=== PATIENT | female | born 1945 | race Caucasian/White ===

== ENCOUNTER 2017-03-29 14:36 | Outpatient (CLI) | payer MEDICARE | END 2017-03-29 14:37 | disposition home or self-care (01) | LOC: LAB.WCP 14:36 | PROVIDERS: ATTEND Family Medicine | DX: N39.0 Urinary tract infection, site not specified (principal) | CPT/HCPCS: 87077; 87086 ==

== ENCOUNTER 2017-05-01 15:33 | Outpatient (CLI) | payer MEDICARE | END 2017-05-01 15:34 | LOC: LAB.R 15:33 | PROVIDERS: ATTEND Physician Assistant Medical | DX: N39.0 Urinary tract infection, site not specified (principal) | CPT/HCPCS: 87086 ==

== ENCOUNTER 2017-10-24 15:00 | Outpatient (CLI) | payer MEDICARE | END 2017-10-24 15:01 | disposition home or self-care (01) | LOC: LAB.WCP 15:00 | PROVIDERS: ATTEND Family Medicine | DX: N39.0 Urinary tract infection, site not specified (principal) | CPT/HCPCS: 87077; 87086 ==

== ENCOUNTER 2018-03-08 10:30 | Outpatient (CLI) | payer MEDICARE | END 2018-03-08 23:59 | disposition home or self-care (01) | LOC: LAB.WCP 10:30 | PROVIDERS: ATTEND Physician Assistant Medical | DX: N39.0 Urinary tract infection, site not specified (principal) | CPT/HCPCS: 87086; 87181 ==

== ENCOUNTER 2019-03-10 12:36 | Outpatient (CLI) | payer MEDICARE ==
[2019-03-10 19:04] LABS: CALCIUM 9.4 mg/dL (8.5-10.3); CREATININE 0.8 mg/dL (0.4-1.0)
== END 2019-03-10 12:37 | disposition home or self-care (01) ==
LOC: LAB.WCP 12:36
PROVIDERS: ATTEND Physician Assistant Medical
DX: I10 Essential (primary) hypertension (principal)
CPT/HCPCS: 36415; 80048

== ENCOUNTER 2019-03-11 15:39 | Outpatient (CLI) | payer MEDICARE ==
--- NOTE | 2019-03-12 10:13 | XRAY Report ---
Reason: HIP PAIN,RIGHT Procedure Date: 03/11/2019 Accession Number: [id number] / [id number] Procedure: WCP - Hip w/Pelvis 2-3V RT CPT Code: FULL RESULT: EXAM: RIGHT HIP RADIOGRAPHY EXAM DATE: 03/11/2019 03:55 PM. CLINICAL HISTORY: Hip pain, right. Pain is chronic, no known injury. COMPARISON: None. TECHNIQUE: 2 views. FINDINGS: Bones: Normal. No fractures or bone lesion. Joints: There is bilateral narrowing of the femoral acetabular joints right greater than left, moderate. There is associated osteophytosis. No subluxation. Soft Tissues: Normal. No soft tissue swelling. IMPRESSION: Degenerative hip disease. RADIA
== END 2019-03-11 15:40 | disposition home or self-care (01) ==
LOC: DI.WCP 15:39
PROVIDERS: ATTEND Physician Assistant Medical
DX: M16.11 Unilateral primary osteoarthritis, right hip (principal)

== ENCOUNTER 2019-05-19 08:00 | Outpatient (CLI) | payer MEDICARE ==
[2019-05-19 18:49] LABS: % IRON SATURATION 8 % (20-50); IRON 31 ug/dL (28-170); TOTAL IRON BINDING CAPACITY 403 ug/dL (250-450); TRANSFERRIN 288 mg/dL (192-382)
[2019-05-19 19:03] LABS: FOLATE 10.12 ng/mL (5.90 - >24.8)
== END 2019-05-19 23:59 | disposition home or self-care (01) ==
LOC: LAB.WCP 08:00
PROVIDERS: ATTEND Physician Assistant Medical
DX: D64.9 Anemia, unspecified (principal)
CPT/HCPCS: 36415; 82607; 82728; 82746; 83540; 84443; 84466

== ENCOUNTER 2019-07-02 08:00 | Outpatient (CLI) | payer MEDICARE ==
[2019-07-02 18:53] LABS: BASOPHILS # (AUTO) 0.1 10^3/uL (0.0-0.1); BASOPHILS % (AUTO) 0.9 %; EOSINOPHILS # (AUTO) 0.3 10^3/uL (0.0-0.7); EOSINOPHILS % (AUTO) 4.5 %; HGB - HEMOGLOBIN 8.5 g/dL (12.0-16.0); LYMPHOCYTES # (AUTO) 1.4 10^3/uL (1.5-3.5); LYMPHOCYTES % (AUTO) 24.4 %; MEAN CORPUSCULAR HEMOGLOBIN 27.1 pg (27.0-31.0); MEAN CORPUSCULAR HGB CONC 29.3 g/dL (32.0-36.0); MEAN CORPUSCULAR VOLUME 92.4 fL (81.0-99.0); MEAN PLATELET VOLUME 9.1 fL (7.9-10.8); MONOCYTES # (AUTO) 0.6 10^3/uL (0.0-1.0); MONOCYTES % (AUTO) 10.3 %; NEUTROPHILS # (AUTO) 3.3 10^3/uL (1.5-6.6); NEUTROPHILS % (AUTO) 59.4 %; PLT - PLATELET COUNT 255 10^3/uL (130-450); RED BLOOD COUNT 3.14 10^6/uL (4.20-5.40); RED CELL DISTRIBUTION WIDTH 13.6 % (12.0-15.0); WHITE BLOOD COUNT 5.5 x10^3/uL (4.8-10.8)
== END 2019-07-02 23:59 | disposition home or self-care (01) ==
LOC: LAB.WCP 08:00
PROVIDERS: ATTEND Physician Assistant Medical
DX: D64.9 Anemia, unspecified (principal)
CPT/HCPCS: 36415; 82728; 85025

== ENCOUNTER 2020-05-06 12:22 | Outpatient (CLI) | payer MEDICARE ==
--- NOTE | 2020-05-07 08:54 | XRAY Report ---
PROCEDURE: Chest 2 View X-Ray INDICATIONS: Dyspnea TECHNIQUE: 2 view(s) of the chest. COMPARISON: None. FINDINGS: Surgical changes and devices: None. Lungs and pleura: No pleural effusions or pneumothorax. Lungs are clear. Mediastinum: Mediastinal contours are normal. Heart size is normal. Bones and chest wall: No suspicious bony abnormalities. Soft tissues appear unremarkable. IMPRESSION: Tiny left pleural effusion with left airspace opacity, potentially atelectasis or pneumon ia. Findings could also be related to cardiogenic pulmonary edema in the appropriate clinical context . Follow-up to both clinical and radiographic resolution is recommended. Reviewed by: Cristhian Li MD on 05/06/2020 2:50 PM PDT Approved by: Cristhian Li MD on 05/06/2020 2:50 PM PDT Station ID: [id number]
== END 2020-05-06 23:59 | disposition home or self-care (01) ==
LOC: DI.WCP 12:22
PROVIDERS: ATTEND Family Medicine
DX: J90 Pleural effusion, not elsewhere classified (principal); R91.8 Other nonspecific abnormal finding of lung field
CPT/HCPCS: 71046

== ENCOUNTER 2020-05-06 13:31 | Outpatient (CLI) | payer MEDICARE ==
[2020-05-06 18:31] LABS: BASOPHILS # (AUTO) 0.1 10^3/uL (0.0-0.1); BASOPHILS % (AUTO) 0.8 %; EOSINOPHILS # (AUTO) 0.5 10^3/uL (0.0-0.7); EOSINOPHILS % (AUTO) 6.3 %; HGB - HEMOGLOBIN 7.2 g/dL (12.0-16.0); LYMPHOCYTES # (AUTO) 1.2 10^3/uL (1.5-3.5); LYMPHOCYTES % (AUTO) 16.4 %; MEAN CORPUSCULAR HEMOGLOBIN 21.9 pg (27.0-31.0); MEAN CORPUSCULAR HGB CONC 27.8 g/dL (32.0-36.0); MEAN CORPUSCULAR VOLUME 78.7 fL (81.0-99.0); MEAN PLATELET VOLUME 9.5 fL (7.9-10.8); MONOCYTES # (AUTO) 0.8 10^3/uL (0.0-1.0); MONOCYTES % (AUTO) 10.5 %; NEUTROPHILS # (AUTO) 4.7 10^3/uL (1.5-6.6); NEUTROPHILS % (AUTO) 65.4 %; PLT - PLATELET COUNT 269 10^3/uL (130-450); RED BLOOD COUNT 3.29 10^6/uL (4.20-5.40); RED CELL DISTRIBUTION WIDTH 19.5 % (12.0-15.0); WHITE BLOOD COUNT 7.2 x10^3/uL (4.8-10.8)
[2020-05-06 18:49] LABS: ALBUMIN 3.7 g/dL (3.2-5.5); ALBUMIN/GLOBULIN RATIO 1.3 (1.0-2.2); BILIRUBIN,TOTAL 0.6 mg/dL (0.2-1.0); CALCIUM 9.2 mg/dL (8.5-10.3); CREATININE 0.6 mg/dL (0.4-1.0); TOTAL PROTEIN 6.5 g/dL (6.7-8.2)
[2020-05-06 18:55] LABS: PLATELET ESTIMATE, MANUAL NORMAL (130-450,000) (NORMAL); PLATELET MORPHOLOGY NORMAL APPEARANCE (NORMAL)
== END 2020-05-06 23:59 | disposition home or self-care (01) ==
LOC: LAB.WCP 13:31
PROVIDERS: ATTEND Family Medicine
DX: D64.9 Anemia, unspecified (principal); R06.00 Dyspnea, unspecified; R60.9 Edema, unspecified; E03.9 Hypothyroidism, unspecified; I10 Essential (primary) hypertension
CPT/HCPCS: 36415; 80053; 83880; 84443; 85025

== ENCOUNTER 2020-05-25 08:00 | Outpatient (CLI) | payer MEDICARE | END 2020-05-25 23:59 | disposition home or self-care (01) | LOC: LAB.WCP 08:00 | PROVIDERS: ATTEND Physician Assistant Medical | DX: D64.9 Anemia, unspecified (principal) ==

== ENCOUNTER 2020-07-15 08:00 | Outpatient (CLI) | payer MEDICARE ==
[2020-07-15 19:06] LABS: BASOPHILS # (AUTO) 0.1 10^3/uL (0.0-0.1); BASOPHILS % (AUTO) 0.9 %; EOSINOPHILS # (AUTO) 0.3 10^3/uL (0.0-0.7); EOSINOPHILS % (AUTO) 5.5 %; HGB - HEMOGLOBIN 12.3 g/dL (12.0-16.0); LYMPHOCYTES # (AUTO) 1.3 10^3/uL (1.5-3.5); LYMPHOCYTES % (AUTO) 22.8 %; MEAN CORPUSCULAR HEMOGLOBIN 29.5 pg (27.0-31.0); MEAN CORPUSCULAR HGB CONC 31.9 g/dL (32.0-36.0); MEAN CORPUSCULAR VOLUME 92.3 fL (81.0-99.0); MEAN PLATELET VOLUME 9.9 fL (7.9-10.8); MONOCYTES # (AUTO) 0.6 10^3/uL (0.0-1.0); MONOCYTES % (AUTO) 10.1 %; NEUTROPHILS # (AUTO) 3.4 10^3/uL (1.5-6.6); NEUTROPHILS % (AUTO) 60.3 %; PLT - PLATELET COUNT 202 10^3/uL (130-450); RED BLOOD COUNT 4.17 10^6/uL (4.20-5.40); RED CELL DISTRIBUTION WIDTH 23.4 % (12.0-15.0); WHITE BLOOD COUNT 5.7 x10^3/uL (4.8-10.8)
[2020-07-15 19:29] LABS: PLATELET ESTIMATE, MANUAL NORMAL (130-450,000) (NORMAL); PLATELET MORPHOLOGY NORMAL APPEARANCE (NORMAL); RBC MORPHOLOGY (MULTIPLE) 3+ ANISOCYTOSIS (NORMAL)
[2020-07-15 19:30] LABS: ALBUMIN 4.2 g/dL (3.2-5.5); ALBUMIN/GLOBULIN RATIO 1.7 (1.0-2.2); BILIRUBIN,TOTAL 0.3 mg/dL (0.2-1.0); CREATININE 0.8 mg/dL (0.4-1.0); TOTAL PROTEIN 6.7 g/dL (6.7-8.2)
== END 2020-07-15 23:59 | disposition home or self-care (01) ==
LOC: LAB.WCP 08:00
PROVIDERS: ATTEND Physician Assistant Medical
DX: R60.9 Edema, unspecified (principal); D64.9 Anemia, unspecified
CPT/HCPCS: 36415; 80053; 82728; 85025

== ENCOUNTER 2020-10-13 08:00 | Outpatient (CLI) | payer MEDICARE ==
[2020-10-13 18:44] LABS: BASOPHILS # (AUTO) 0.1 10^3/uL (0.0-0.1); BASOPHILS % (AUTO) 0.8 %; EOSINOPHILS # (AUTO) 0.3 10^3/uL (0.0-0.7); EOSINOPHILS % (AUTO) 4.4 %; HGB - HEMOGLOBIN 13.1 g/dL (12.0-16.0); LYMPHOCYTES # (AUTO) 1.6 10^3/uL (1.5-3.5); LYMPHOCYTES % (AUTO) 24.2 %; MEAN CORPUSCULAR HEMOGLOBIN 31.9 pg (27.0-31.0); MEAN CORPUSCULAR HGB CONC 31.9 g/dL (32.0-36.0); MEAN PLATELET VOLUME 10.3 fL (7.9-10.8); MONOCYTES # (AUTO) 0.6 10^3/uL (0.0-1.0); MONOCYTES % (AUTO) 8.9 %; NEUTROPHILS # (AUTO) 3.9 10^3/uL (1.5-6.6); NEUTROPHILS % (AUTO) 61.2 %; PLT - PLATELET COUNT 201 10^3/uL (130-450); RED BLOOD COUNT 4.11 10^6/uL (4.20-5.40); RED CELL DISTRIBUTION WIDTH 12.4 % (12.0-15.0); WHITE BLOOD COUNT 6.4 x10^3/uL (4.8-10.8)
[2020-10-13 19:33] LABS: % IRON SATURATION 34 % (20-50); ALBUMIN 4.3 g/dL (3.2-5.5); ALBUMIN/GLOBULIN RATIO 1.7 (1.0-2.2); ALKALINE PHOSPHATASE 70 IU/L (42-121); ALT ALANINE AMINOTRANSFERASE 25 IU/L (10-60); AST ASPARTATE AMINOTRANSFERASE 28 IU/L (10-42); BILIRUBIN,TOTAL 0.7 mg/dL (0.2-1.0); BUN - BLOOD UREA NITROGEN 28 mg/dL (6-20); CALCIUM 9.7 mg/dL (8.5-10.3); CARBON DIOXIDE - CO2 25 mmol/L (21-32); CHLORIDE 109 mmol/L (101-111); CHOL/HDL RATIO 2.9 (<4.4); CHOLESTEROL 134 mg/dL; CREATININE 0.8 mg/dL (0.4-1.0); GLUCOSE 96 mg/dL (70-100); HDL CHOLESTEROL 46 mg/dL; IRON 115 ug/dL (28-170); LDL CHOLESTEROL,CALCULATED 67 mg/dL; LDL/HDL RATIO 1.5 (<4.4); TOTAL IRON BINDING CAPACITY 339 ug/dL (250-450); TOTAL PROTEIN 6.9 g/dL (6.7-8.2); TRANSFERRIN 242 mg/dL (192-382); VLDL CHOLESTEROL 21 mg/dL
== END 2020-10-13 23:59 | disposition home or self-care (01) ==
LOC: LAB.WCP 08:00
PROVIDERS: ATTEND Physician Assistant Medical
DX: I10 Essential (primary) hypertension (principal); I63.9 Cerebral infarction, unspecified; D64.9 Anemia, unspecified
CPT/HCPCS: 36415; 80053; 80061; 82728; 83540; 83721; 84466; 85025

== ENCOUNTER 2021-02-01 08:00 | Outpatient (CLI) | payer MEDICARE ==
[2021-02-01 17:47] LABS: BASOPHILS # (AUTO) 0.1 10^3/uL (0.0-0.1); BASOPHILS % (AUTO) 1.1 %; EOSINOPHILS # (AUTO) 0.3 10^3/uL (0.0-0.7); EOSINOPHILS % (AUTO) 5.6 %; HCT - HEMATOCRIT 40.7 % (37.0-47.0); HGB - HEMOGLOBIN 13.3 g/dL (12.0-16.0); LYMPHOCYTES # (AUTO) 1.4 10^3/uL (1.5-3.5); LYMPHOCYTES % (AUTO) 25.4 %; MEAN CORPUSCULAR HEMOGLOBIN 32.5 pg (27.0-31.0); MEAN CORPUSCULAR HGB CONC 32.7 g/dL (32.0-36.0); MEAN CORPUSCULAR VOLUME 99.5 fL (81.0-99.0); MEAN PLATELET VOLUME 10.4 fL (7.9-10.8); MONOCYTES # (AUTO) 0.6 10^3/uL (0.0-1.0); MONOCYTES % (AUTO) 11.4 %; NEUTROPHILS % (AUTO) 56.1 %; PLT - PLATELET COUNT 182 10^3/uL (130-450); RED BLOOD COUNT 4.09 10^6/uL (4.20-5.40); RED CELL DISTRIBUTION WIDTH 12.4 % (12.0-15.0); WHITE BLOOD COUNT 5.4 x10^3/uL (4.8-10.8)
== END 2021-02-01 23:59 | disposition home or self-care (01) ==
LOC: LAB.WCP 08:00
PROVIDERS: ATTEND Physician Assistant Medical
DX: D64.9 Anemia, unspecified (principal)
CPT/HCPCS: 36415; 82728; 85025